=== PATIENT | male | born 1965 | race Caucasian/White ===

== ENCOUNTER 2022-02-16 15:51 | Emergency (ER) | payer MEDICARE, OTHER ==
[~2022-02-16] VITALS: Ht 182.9 cm; Wt 93.9 kg
--- NOTE | 2022-02-16 15:59 | NUR ---
BIB CAREGIVER FROM [facility] B&C C/O PAIN ON URINATION AND REDNESS IN GROIN AREA X 2 WEEKS. AAOX4, BREATHING EVEN AND UNLABORED, NOT IN RESP DISTRESS, PULSES 2+ BILATERALY. WILL CONTINUE TO MONITOR.
--- NOTE | 2022-02-16 17:30 | NUR ---
UNABLE TO OBTAIN URINE. URINAL GIVEN TO PT AT THIS TIME.
--- NOTE | 2022-02-16 18:55 | NUR ---
URINE SAMPLE COLLECTED AND SENT TO LAB
[2022-02-16] MEDS ORDERED: NA P133E RC (19:12)
[2022-02-16] MEDS ORDERED: HYDR12.55 PO (19:12)
[2022-02-16] MEDS ORDERED: TRAM50TA2 PO (19:12)
[2022-02-16] MEDS ORDERED: MAGN400O6 PO (19:12)
[2022-02-16] MEDS ORDERED: CEPH250S PO (19:12)
[2022-02-16] MEDS ORDERED: CALC500T52 PO (19:12)
[2022-02-16] MEDS ORDERED: AMIN30LI2 PO (19:12)
[2022-02-16] MEDS ORDERED: ONDA-97 PO (19:12)
[2022-02-16] MEDS ORDERED: ASCO-340 PO (19:12)
[2022-02-16] MEDS ORDERED: TAMS-12 PO (19:12)
[2022-02-16] MEDS ORDERED: SULF500T8 PO (19:12)
[2022-02-16] MEDS ORDERED: QUET25TA PO (19:12)
[2022-02-16] MEDS ORDERED: FURO-145 PO (19:12)
[2022-02-16] MEDS ORDERED: CHOL100043 PO (19:12)
[2022-02-16 20:06] LABS: BILIRUBIN,URINE NEGATIVE (NEGATIVE); COLOR,URINE DARK YELLOW (YELLOW); LEUKOCYTE ESTERASE ,URINE NEGATIVE (NEGATIVE); NITRITE, URINE NEGATIVE (NEGATIVE); PROTEIN,URINE TRACE mg/dl (NEGATIVE); UGLUCOSE NEGATIVE (NEGATIVE); UROBILINOGEN,URINE 0.2 EU/dL (0.2)
[2022-02-16 20:21] LABS: BACTERIA,URINE Few /HPF (None Seen); RBC,URINE 0-2 /HPF (0-2); SQUAMOUS EPITHELIAL CELL,UR Few /HPF (None Seen)
[2022-02-16] MEDS ORDERED: CLOT15CR27 TP (20:23)
[2022-02-16] MEDS ORDERED: FLUC200T PO (20:23)
--- NOTE | 2022-02-16 20:43 | NUR ---
[facility] ETA 90 MINS
--- NOTE | 2022-02-16 22:29 | NUR ---
[facility] AT BED SIDE TO RETINA SUBSPECIALIST THE PT
--- NOTE | 2022-02-16 22:35 | NUR ---
PT DISCHARGED BACK TO [facility] IN STABLE CONDITION. DISCHARGE INSTRUCTIONS PROVIDED AND PT VERBALIZES UNDERSTANDING. PICKED UP BY [facility].
[2022-02-16 22:37] VITALS: BP 122/64
== END 2022-02-16 22:38 | disposition home or self-care (01) ==
LOC: ER 15:57
DX: B35.6 Tinea cruris (principal); I10 Essential (primary) hypertension; F20.9 Schizophrenia, unspecified; F32.A Depression, unspecified; Z79.899 Other long term (current) drug therapy
CPT/HCPCS: 81001; 82962-TC

== ENCOUNTER 2022-03-26 11:07 | Emergency (ER) | payer MEDICARE, OTHER ==
[~2022-03-26] VITALS: Ht 182.9 cm; Wt 90.7 kg
[~2022-03-26 11:07] MED LIST: AMIN30LI2 PO; ASCO-340 PO; CALC500T52 PO; CEPH250S PO; CHOL100043 PO; CLOT15CR27 TP; FLUC200T PO; FURO-145 PO; HYDR12.55 PO; MAGN400O6 PO; NA P133E RC; ONDA-97 PO; QUET25TA PO; SULF500T8 PO; TAMS-12 PO; TRAM50TA2 PO
[2022-03-26] MEDS ORDERED: FLUC200T PO (12:05)
[2022-03-26] MEDS ORDERED: FLUCONAZOLE (100 MG) 100 MG TABLET ONE (12:14)
[2022-03-26 12:21] VITALS: BP 110/76
[2022-03-26] MEDS ORDERED: FLUCONAZOLE (100 MG) 100 MG TABLET PO ONE (12:30)
== END 2022-03-26 12:21 ==
LOC: ER 11:08
DX: B35.6 Tinea cruris (principal); Z20.822 Contact with and (suspected) exposure to COVID-19; F20.9 Schizophrenia, unspecified; I10 Essential (primary) hypertension; F31.9 Bipolar disorder, unspecified; K51.90 Ulcerative colitis, unspecified, without complications; R13.12 Dysphagia, oropharyngeal phase; N40.0 Benign prostatic hyperplasia without lower urinary tract symptoms; Z79.899 Other long term (current) drug therapy
CPT/HCPCS: C9803